=== PATIENT | female | born 1985 | race Caucasian/White ===

== ENCOUNTER → 2020-10-31 | Outpatient (CLI) | payer OTHER | END | disposition home or self-care (01) | LOC: LABWHC1 08:41 | PROVIDERS: ATTEND Obstetrics & Gynecology | DX: N92.6 Irregular menstruation, unspecified (principal) | CPT/HCPCS: 36415; 84702 ==

== ENCOUNTER → 2020-11-01 | Outpatient (CLI) | payer OTHER | END | disposition home or self-care (01) | LOC: LABWHC1 07:26 | PROVIDERS: ATTEND Obstetrics & Gynecology | DX: Z34.01 Encounter for supervision of normal first pregnancy, first trimester (principal); Z3A.00 Weeks of gestation of pregnancy not specified | CPT/HCPCS: 86850; 86900; 86901 ==

== ENCOUNTER → 2020-11-02 | Outpatient (CLI) | payer OTHER | END | disposition home or self-care (01) | LOC: LABWHC1 07:31 | PROVIDERS: ATTEND Obstetrics & Gynecology | DX: O20.0 Threatened abortion (principal); Z3A.00 Weeks of gestation of pregnancy not specified | CPT/HCPCS: 36415; 84702 ==

== ENCOUNTER → 2020-11-13 | Outpatient (CLI) | payer OTHER | END | disposition home or self-care (01) | LOC: LABWHC1 15:52 | PROVIDERS: ATTEND Obstetrics & Gynecology | DX: O20.0 Threatened abortion (principal) | CPT/HCPCS: 36415; 84702 ==

== ENCOUNTER → 2020-11-30 | Outpatient (CLI) | payer OTHER ==
--- NOTE | 2020-11-30 14:54 | US ---
EXAMINATION TYPE: Transabdominal DATE OF EXAM: 11/30/2020 2:38 PM COMPARISON: NONE CLINICAL HISTORY: O46.91 TRIMESTER BLEEDING OR SPOTTING. Bleeding x 1 day, 1 EXAM PERFORMED: Transvaginal (TV) and Transabdominal (TA) EXAM MEASUREMENTS: GESTATIONAL AGE / DATING Physician Established: Not yet established Dates by LMP: (9 weeks/4 days) EDC: 07/01/2021 Dates by First Scan: No previous this is first scan Dates by Current Scan for: No IUP seen at this time MATERNAL ANATOMY Uterus: 8.0 x 4.8 x 5.6cm, heterogeneous endometrium with vascularity Right Ovary: 3.3 x 1.7 x 2.1cm Left Ovary: 3.1 x 1.6 x 1.5cm Post CDS / Adnexa: wnl Presence of free fluid: no Presence of corpus luteal cyst: not seen Presence of subchorionic bleed: no GESTATION / SURVEY IUP: No IUP seen at this time Date of LMP: 09/24/2020 Beta HcG (if available): Not available at time of exam IMPRESSION: Endometrium is heterogeneous with increased vascularity. Measures approximately 1.3 cm appears thicke maci. No intrauterine . . No definite intrauterine seen. Finding nonspecific could be related to early too early to detect. Other etiologies not excluded including missed abo rtion or ectopic , correlate with serial beta hCG and pelvic ultrasound.
== END | disposition home or self-care (01) ==
LOC: RADUSWWP 14:06
PROVIDERS: ATTEND Obstetrics & Gynecology
DX: O20.9 Hemorrhage in early pregnancy, unspecified (principal); Z3A.09 9 weeks gestation of pregnancy
CPT/HCPCS: 76801; 76817

== ENCOUNTER → 2021-01-25 | Outpatient (CLI) | payer OTHER | END | disposition home or self-care (01) | LOC: LABWHC1 07:19 | PROVIDERS: ATTEND Obstetrics & Gynecology | DX: N92.6 Irregular menstruation, unspecified (principal) | CPT/HCPCS: 36415; 84702 ==

== ENCOUNTER → 2021-01-29 | Outpatient (CLI) | payer OTHER | END | disposition home or self-care (01) | LOC: LABWHC1 07:06 | PROVIDERS: ATTEND Obstetrics & Gynecology | DX: N92.6 Irregular menstruation, unspecified (principal) | CPT/HCPCS: 36415; 84702 ==

== ENCOUNTER → 2021-02-02 | Outpatient (CLI) | payer OTHER | END | disposition home or self-care (01) | LOC: LABWHC1 07:01 | PROVIDERS: ATTEND Obstetrics & Gynecology | DX: O02.1 Missed abortion (principal); Z3A.00 Weeks of gestation of pregnancy not specified | CPT/HCPCS: 36415; 84702 ==

== ENCOUNTER → 2021-02-12 | Outpatient (CLI) | payer OTHER ==
--- NOTE | 2021-02-13 08:16 | US ---
EXAMINATION TYPE: Transabdominal DATE OF EXAM: 02/12/2021 4:30 PM COMPARISON: 11/30/2020 CLINICAL HISTORY: Z36 CONFIRM DATES. early ob dating, cramping EXAM PERFORMED: OBTA/OBTV EXAM MEASUREMENTS: GESTATIONAL AGE / DATING Physician Established: Not yet established Dates by LMP: (6 weeks/6 days) EDC: 10/02/2021 Dates by First Scan: No previous this is first scan Dates by Current Scan for: (6 weeks/4 days) EDC: 10/04/2021 MATERNAL ANATOMY Uterus: 11.1 x 7.2 x 5.7cm Right Ovary: 2.7 x 1.1 x 1.8 cm Left Ovary: 3.0 x 2.5 x 1.6cm Post CDS / Adnexa: wnl Presence of free fluid: no Presence of corpus luteal cyst: yes, left ovary = 2.4cm Presence of subchorionic bleed: no GESTATION / SURVEY CRL: 0.7 (6 weeks/4 days) MSD: wnl Yolk Sac (normal less than 6mm): 0.2cm Heart Rate: 131 bpm Rhythm: Normal IUP: Viable IUP Date of LMP: 12/26/2020 Hypoechoic tissue surrounding the gestational sac is prominent with internal areas of hypoechogenicit y. IMPRESSION: Single live intrauterine measuring approximately 6 weeks and 4 days by sonographic criteria . Hypoechoic tissue surrounding the gestational sac is slightly prominent with internal areas of hypoec hogenicity. Correlation with patient's quantitative beta hCG values is recommended with follow-up ultrasound diane mmended in 2 weeks as partial molar or other etiologies could have this appearance, althoug h this may still represent normal intrauterine .
== END | disposition home or self-care (01) ==
LOC: RADUSWWP 15:31
PROVIDERS: ATTEND Obstetrics & Gynecology
DX: O26.899 Other specified pregnancy related conditions, unspecified trimester (principal); R25.2 Cramp and spasm; Z3A.01 Less than 8 weeks gestation of pregnancy
CPT/HCPCS: 76801; 76817

== ENCOUNTER 2021-04-03 22:53 | Emergency (ER) | payer OTHER ==
[2021-04-03 23:17] VITALS: TEMP 100.5
[2021-04-04 00:14] LABS: Appearance,Urine Cloudy (Clear); Bacteria,Urine Few /hpf; Bilirubin,Urine Negative (Negative); Blood,Urine Negative (Negative); Color,Urine Light Yellow; Glucose,Urine (UA) Negative (Negative); Ketones,Urine Negative (Negative); Leukocyte Esterase,Urine Negative (Negative); Nitrite,Urine Negative (Negative); PH, Urine 6.5 (5.0-8.0); Protein,Urine Negative (Negative); RBC,Urine <1 /hpf (0-5); Specific Gravity,Urine 1.004 (1.001-1.035); Squamous Epithelial Cell,Urine 4 /hpf (0-4); Urobilinogen,Urine <2.0 mg/dL (<2.0); WBC,Urine 2 /hpf (0-5)
--- NOTE | 2021-04-04 00:23 | US ---
EXAMINATION TYPE: US OB >= 14 wk fetus DATE OF EXAM: 04/04/2021 COMPARISON: None CLINICAL HISTORY: pain fever TECHNIQUE: Transabdominal (TA) GESTATIONAL AGE / DATING Physician Established: (14 weeks/0 days) EDC: 10/02/2021 Dates by LMP: (14 weeks/0 days) EDC: 10/02/2021 Dates by Current Scan: (14 weeks/5 days) EDC: 09/27/2021 SURVEY IUP: Single PLACENTA: Anterior PREVIA: Complete SALVADOR: Too early to accurately measure, appears wnl CERVICAL LENGTH (transabdominal: norm > 3.0cm): 3.6 cm BIOMETRY PRESENTATION: Variable LIE: Longitudinal BPD: 2.6 cm 14 weeks / 4 days HC: 10.3 cm 14 weeks / 6 days AC: 7.9 cm 14 weeks / 3 days FL: 1.5 cm 14 weeks / 3 days ESTIMATED WEIGHT IN GRAMS: 97 grams ESTIMATED WEIGHT IN LBS/OZ: 0 lbs. 3 oz. WEIGHT PERCENTAGE BASED ON ESTABLISHED DATES: 64% HC/AC: 1.29 Normal FL/AC: 19% Normal HEART RATE: 150 bpm RHYTHM: Normal Viable IUP, measurements consistent with dates. Complete placenta previa is noted . IMPRESSION: There is anterior placenta previa. Follow-up is recommended to show placental migration.. There is satisfactory growth compared to 02/12/2021 exam
--- NOTE | 2021-04-04 00:41 | ED ---
URI HPI - General Chief Complaint: Upper Respiratory Infection Stated Complaint: Fever, 14wks pgt Time Seen by Provider: 04/03/21 23:08 Source: patient, RN notes reviewed Mode of arrival: ambulatory Limitations: no limitations - History of Present Illness Initial Comments: 35-year-old female presents emergency Department chief complaint of fever. Fever started approximately 24 hours ago. Patient has mild congestionand sore throat ear pain no body aches. Patient has no abdominal complaints she is currently denies any vaginal bleeding vaginal discharge no dysuria no hematuria. Patient was seen at urgent care and had a negative ova test. Patient offers no complaints. - Related Data Home Medications Medication Instructions Recorded Confirmed Oqj-Gaic-Eauyk Acid 1 cap PO DAILY 04/03/21 04/03/21 [-U Capsule (formulary)] Previous Rx's Medication Instructions Recorded Azithromycin [Zithromax Z-pack (6 0 mg PO DIRECTED #1 packet 04/04/21 tabs)] Allergies Allergy/AdvReac Type Severity Reaction Status Date / Time No Known Allergies Allergy Verified 04/03/21 23:46 Review of Systems ROS Statement: Those systems with pertinent positive or pertinent negative responses have been documented in the HPI. ROS Other: All systems not noted in ROS Statement are negative. Past Medical History Past Medical History: Musculoskeletal Disorder Additional Past Medical History / Comment(s): BACK PAIN, IBS History of Any Multi-Drug Resistant Organisms: None Reported Past Surgical History: Cholecystectomy Additional Past Surgical History / Comment(s): colonoscopy Past Anesthesia/Blood Transfusion Reactions: No Reported Reaction Past Psychological History: ADD/ADHD, Anxiety Smoking Status: Never smoker Past Alcohol Use History: Occasional Past Drug Use History: None Reported - Past Family History Mother Family Medical History: No Reported History General Exam Limitations: no limitations General appearance: alert, in no apparent distress Head exam: Present: atraumatic, normocephalic, normal inspection Eye exam: Present: normal appearance, PERRL, EOMI. Absent: scleral icterus, conjunctival injection, periorbital swelling ENT exam: Present: normal exam, normal oropharynx, mucous membranes moist Neck exam: Present: normal inspection, full ROM. Absent: tenderness, meningismus, lymphadenopathy Respiratory exam: Present: normal lung sounds bilaterally. Absent: respiratory distress, wheezes, rales, rhonchi, stridor Cardiovascular Exam: Present: regular rate, normal rhythm, normal heart sounds. Absent: systolic murmur, diastolic murmur, rubs, gallop, clicks GI/Abdominal exam: Present: soft, normal bowel sounds. Absent: distended, tenderness, guarding, rebound, rigid Course Vital Signs 04/03/21 04/03/21 23:00 23:16 Temperature 99.5 F 100.5 F H Pulse Rate 94 Respiratory 19 Rate Blood Pressure 114/72 O2 Sat by Pulse 97 Oximetry Medical Decision Making - Medical Decision Making Patient has a negative COVID-19 tests urinalysis unremarkable. Ultrasound shows placenta previa patient will follow-up with [facility]. Return parameters were discussed. - Lab Data Lab Results 04/03/21 04/03/21 Range/Units 23:25 23:25 Urine Color Light Yellow Urine Appearance Cloudy H (Clear) Urine pH 6.5 (5.0-8.0) Ur Specific [place] 1.004 (1.001-1.035) Urine Protein Negative (Negative) Urine Glucose (UA) Negative (Negative) Urine Ketones Negative (Negative) Urine Blood Negative (Negative) Urine Nitrite Negative (Negative) Urine Bilirubin Negative (Negative) Urine Urobilinogen <2.0 (<2.0) mg/dL Ur Leukocyte Esterase Negative (Negative) Urine RBC <1 (0-5) /hpf Urine WBC 2 (0-5) /hpf Ur Squamous Epith Cells 4 (0-4) /hpf Urine Bacteria Few H (None) /hpf Coronavirus (PCR) Not Detected (Not Detectd) Disposition Clinical Impression: Upper respiratory tract infection, Placenta previa Disposition: HOME SELF-CARE Condition: Stable Instructions (If sedation given, give patient instructions): Upper Respiratory Infection (ED) Additional Instructions: Please return to the Emergency Department if symptoms worsen or any other concerns. Prescriptions: Azithromycin [Zithromax Z-pack (6 tabs)] 0 mg PO DIRECTED #1 packet Is patient prescribed a controlled substance at d/c from ED?: No Referrals: Nate Dorantes MD [Primary Care Provider] - 1-2 days Time of Disposition: 00:41
[2021-04-04 00:48] VITALS: BP 122/69; PULSE 81; RESP 20
== END 2021-04-04 00:48 | disposition home or self-care (01) ==
LOC: EC 22:53
DX: O99.512 Diseases of the respiratory system complicating pregnancy, second trimester (principal); O44.02 Complete placenta previa NOS or without hemorrhage, second trimester; O99.342 Other mental disorders complicating pregnancy, second trimester; J06.9 Acute upper respiratory infection, unspecified; F41.9 Anxiety disorder, unspecified; F90.9 Attention-deficit hyperactivity disorder, unspecified type; Z3A.14 14 weeks gestation of pregnancy; Z90.49 Acquired absence of other specified parts of digestive tract; Z20.822 Contact with and (suspected) exposure to COVID-19
CPT/HCPCS: 76805; 81001; 87635; 99284

== ENCOUNTER 2021-09-15 10:40 | Inpatient (IN) | payer OTHER ==
[2021-09-15 11:36] LABS: Creatinine,Urine Random 181.3 mg/dL; Protein/Creatinine Ratio,Urine 0.259
[2021-09-15 11:40] LABS: Basophils % (A) 0 %; Eosinophils % (A) 1 %; HCT 38.4 % (34.0-46.0); HGB 12.9 gm/dL (11.4-16.0); Lymphocytes # (A) 1.6 k/uL (1.0-4.8); Lymphocytes % (A) 29 %; MCH 31.9 pg (25.0-35.0); MCHC 33.6 g/dL (31.0-37.0); MCV 94.7 fL (80.0-100.0); Mean Platelet Volume 8.7; Monocytes # (A) 0.2 k/uL (0-1.0); Monocytes % (A) 4 %; Neutrophils # (A) 3.5 k/uL (1.3-7.7); Neutrophils % (A) 64 %; Platelet Count 128 k/uL (150-450); RBC 4.05 m/uL (3.80-5.40); RDW 14.7 % (11.5-15.5); WBC 5.4 k/uL (3.8-10.6)
[2021-09-15 11:49] LABS: Uric Acid 9.2 mg/dL (3.7-7.4)
[2021-09-15 11:52] LABS: Appearance,Urine Cloudy (Clear); Bacteria,Urine Few /hpf; Bilirubin,Urine Negative (Negative); Blood,Urine Negative (Negative); Color,Urine Yellow; Glucose,Urine (UA) Negative (Negative); Ketones,Urine Negative (Negative); Leukocyte Esterase,Urine Small (Negative); Mucus,Urine Occasional /hpf; Nitrite,Urine Negative (Negative); PH, Urine 6.5 (5.0-8.0); Protein,Urine 1+ (Negative); RBC,Urine 1 /hpf (0-5); Specific Gravity,Urine 1.017 (1.001-1.035); Squamous Epithelial Cell,Urine 72 /hpf (0-4); Urobilinogen,Urine <2.0 mg/dL (<2.0); WBC,Urine 5 /hpf (0-5)
[2021-09-15] MEDS ORDERED: CARBOPROST TROMETHAMINE 250 MCG/ML 1 ML AMP IM PRN (12:02)
[2021-09-15] MEDS ORDERED: LIDOCAINE 1% (PF) 10 MG/ML (30 ML SDV) SQ PRN (12:02)
[2021-09-15] MEDS ORDERED: METHYLERGONOVINE 0.2 MG/ML 1 ML AMP IM PRN (12:02)
[2021-09-15] MEDS ORDERED: OXYTOCIN 10 UNIT/ML 1 ML VIAL IM PRN (12:02)
[2021-09-15] MEDS ORDERED: TERBUTALINE 1 MG/ML VIAL SQ PRN (12:02)
[2021-09-15] MEDS ORDERED: OXYTOCIN 30 UNITS/500 ML NS 30 UNIT in SALINE 1 500ML.BAG IV SCH (12:15)
[2021-09-15] MEDS: LACTATED RINGERS 1,000 ML IV SCH ×2 (12:15→19:47)
[2021-09-15 15:30] LABS: INR 0.8 (<1.2); Partial Thromboplastin Time 23.7 sec (22.0-30.0); Prothrombin Time 9.3 sec (9.0-12.0)
--- NOTE | 2021-09-15 15:38 | P.HPOB ---
History of Present Illness H&P Date: 09/15/21 Chief Complaint: high BP 36 year old presents at 37 weeks 3 days with intermittent headache, nausea and spots in her vision. Her BP at home was 141/95. I advised her to come to triage where she had more elevated BPs. She also has a high uric acid and creatinine though her PC ratio is still within normal. I am diagnosing her with pre-eclampsia. The patient, her and I had a long discussion about what pre-eclampsia is and the method of delivery. Shared decision making was used and she will undergo induction of labor with amniotomy and pitocin. Pt is 1-2/60/- 2. She is lars irregularly and heart tones are 135 with moderate variability and reactive. Review of Systems All systems: negative Constitutional: Denies chills, Denies fever Eyes: denies blurred vision, denies pain Ears, nose, mouth and throat: Reports headache, Denies sore throat Cardiovascular: Denies chest pain, Denies shortness of breath Respiratory: Denies cough Gastrointestinal: Denies abdominal pain, Denies diarrhea, Denies nausea, Denies vomiting Genitourinary: Denies dysuria, Denies hematuria Musculoskeletal: Denies myalgias Integumentary: Denies pruritus, Denies rash Neurological: Denies numbness, Denies weakness Psychiatric: Denies anxiety, Denies depression Endocrine: Denies fatigue, Denies weight change Past Medical History Past Medical History: Musculoskeletal Disorder Additional Past Medical History / Comment(s): BACK PAIN, IBS History of Any Multi-Drug Resistant Organisms: None Reported Past Surgical History: Cholecystectomy Additional Past Surgical History / Comment(s): colonoscopy, back sugery Past Anesthesia/Blood Transfusion Reactions: No Reported Reaction Past Psychological History: ADD/ADHD, Anxiety Smoking Status: Former smoker Past Alcohol Use History: Occasional Additional Past Alcohol Use History / Comment(s): SMOKED OFF AND ON FROM AGE 17 (2001) UNTIL 2015, LESS THAN 1PPD Past Drug Use History: None Reported - Past Family History Mother Family Medical History: No Reported History Medications and Allergies Home Medications Medication Instructions Recorded Confirmed Type Kor-Bger-Faqek Acid 1 cap PO DAILY 04/03/21 09/15/21 History [-U Capsule (formulary)] Allergies Allergy/AdvReac Type Severity Reaction Status Date / Time No Known Allergies Allergy Verified 09/15/21 11:00 Exam Osteopathic Statement: *. No significant issues noted on an osteopathic structural exam other than those noted in the History and Physical/Consult. Vital Signs Temp Pulse Resp BP Pulse Ox 09/15/21 12:08 97.0 F L 69 18 134/86 09/15/21 12:00 97.0 F L 69 17 134/86 100 Intake and Output 09/15/21 09/15/21 09/15/21 06:59 14:59 22:59 Other: # Voids 3 Weight 72.121 kg HEart: RRR Lungs: CTAB Abdomen: soft, nontender Extremeties: neg asif's Results Result Diagrams: 09/15/21 11:25 09/15/21 11:25 Abnormal Lab Results - Last 24 Hours (Table) 09/15/21 09/15/21 09/15/21 Range/Units 11:00 11:25 11:25 Plt Count 128 L (150-450) k/uL Uric Acid 9.2 H (3.7-7.4) mg/dL Urine Appearance Cloudy H (Clear) Urine Protein 1+ H (Negative) Ur Leukocyte Esterase Small H (Negative) Ur Squamous Epith Cells 72 H (0-4) /hpf Urine Bacteria Few H (None) /hpf Urine Mucus Occasional H (None) /hpf Assessment and Plan (1) Pre-eclampsia Current Visit: Yes Status: Acute Code(s): O14.90 - UNSPECIFIED PRE- ECLAMPSIA, UNSPECIFIED TRIMESTER SNOMED Code(s): 240342709 Plan: 1. monitor BP 2. induction of labor with amniotomy and pitocin 3. anticipate normal vaginal delivery
[2021-09-15] MEDS: BUTORPHANOL 1 MG/ML 1 ML VIAL IV PRN ×2 (17:49→19:49)
[2021-09-16] MEDS ORDERED: AMPICILLIN 2,000 MG in SODIUM CHLORIDE 0.9% 100 ML IVPB STA (01:04)
[2021-09-16] MEDS: LACTATED RINGERS 1,000 ML IV SCH ×2 (02:03→04:42)
[2021-09-16] MEDS ORDERED: AMPICILLIN 1,000 MG in SODIUM CHLORIDE 0.9% 50 ML IVPB SCH (05:15)
[2021-09-16] MEDS ORDERED: diphenhydrAMINE 50 MG CAP PO PRN (06:39)
[2021-09-16] MEDS ORDERED: diphenhydrAMINE 25 MG CAP PO PRN (06:39)
[2021-09-16] MEDS ORDERED: ZOLPIDEM 5 MG TAB PO PRN (06:39)
[2021-09-16] MEDS ORDERED: HYDROCORTISONE 2.5% RECTAL CREAM 30 GM TUBE RECTAL PRN (06:39)
[2021-09-16] MEDS ORDERED: diphenhydrAMINE 50 MG/ML 1 ML VIAL IVP PRN ×2 (06:39)
[2021-09-16] MEDS ORDERED: LANOLIN CREAM 5 GM TUBE TOPICAL PRN (06:39)
[2021-09-16] MEDS ORDERED: SIMETHICONE 80 MG CHEWABLE PO PRN (06:39)
--- NOTE | 2021-09-16 06:43 | P.PROBDLV ---
Vaginal Delivery Note - . Vaginal Delivery Note: 36 year old presents at 37 weeks 3 days with intermittent headache, nausea and spots in her vision. Her BP at home was 141/95. I advised her to come to triage where she had more elevated BPs. She also has a high uric acid and creatinine though her PC ratio is still within normal. I am diagnosing her with pre-eclampsia. The patient, her and I had a long discussion about what pre-eclampsia is and the method of delivery. Shared decision making was used and she will undergo induction of labor with amniotomy and pitocin. Pt is 1-2/60/-2. She is lars irregularly and heart tones are 135 with moderate variability and reactive. Pitocin was started around 12:30 in the afternoon. Patient was starting to get uncomfortable with contractions and amniotomy was performed at 1407 clear fluid noted. She did get a few doses of Stadol and then an epidural when she was 4 cm. Her cervix was completely dilated at 0552, she pushed and delivered a viable female over intact perineum under epidural anesthesia at 0616. Head delivered OA, anterior shoulder delivered gentle downward guidance followed by posterior shoulder and rest of body. Nose and mouth bulb suctioned, cord clamped and cut, placed mother's abdomen. Apgars 8, 9, weight pending. Placenta delivered spontaneously, intact with three-vessel cord at 6:21 AM. Vagina, cervix, perineum inspected. First-degree midline laceration was repaired with 3-0 Vicryl. Estimated blood loss 150 mL. Mother and baby in stable condition.
[2021-09-16] MEDS ORDERED: OXYTOCIN 30 UNITS/500 ML NS 30 UNIT in SALINE 1 500ML.BAG IV SCH (06:45)
[2021-09-16] MEDS: BENZOCAINE/MENTHOL SPRAY 1 GM/SPRAY AEROSOL TOPICAL PRN ×2 (07:00→07:49)
[2021-09-16] MEDS: SENNOSIDES-DOCUSATE SODIUM 1 EACH TAB PO SCH (07:48)
[2021-09-16] MEDS: IBUPROFEN 600 MG TAB PO PRN ×3 (07:48→20:45)
[2021-09-16] MEDS: ACETAMINOPHEN TAB 325 MG TAB PO PRN ×2 (10:36→17:52)
[2021-09-16] MEDS ORDERED: ROPIVACAINE 100 MG, fentaNYL (PF). 200 MCG in SODIUM CHLORIDE 0.9% 76 ML EPIDURAL ONE (16:17)
[2021-09-17] MEDS: SENNOSIDES-DOCUSATE SODIUM 1 EACH TAB PO SCH ×3 (02:04→21:19)
[2021-09-17] MEDS: ACETAMINOPHEN TAB 325 MG TAB PO PRN ×2 (06:19→15:56)
--- NOTE | 2021-09-17 06:20 | P.PNOBGVD ---
Subjective - Subjective Patient reports: Reports appetite normal, Reports voiding normally, Reports pain well controlled, Reports ambulating normally : doing well Objective - Latest Vital Signs Latest vital signs: Vital Signs Temp Pulse Resp BP 09/17/21 00:23 98.6 F 61 16 131/80 09/16/21 20:45 98.6 F 66 16 135/86 09/16/21 15:26 97.4 F L 73 17 136/89 09/16/21 12:00 97.9 F 63 18 150/91 09/16/21 10:15 97.1 F L 61 18 154/83 09/16/21 08:30 98.8 F 72 18 135/68 09/16/21 08:00 71 18 162/79 09/16/21 07:30 98.4 F 17 150/82 09/16/21 07:15 76 18 137/71 09/16/21 07:00 74 16 139/96 09/16/21 06:45 74 16 143/66 09/16/21 06:30 98.5 F 81 16 147/85 Intake and Output 09/16/21 09/16/21 09/17/21 14:59 22:59 06:59 Intake Total 1000 1200 Balance 1000 1200 Intake: IV 1000 Oral 1200 Other: # Voids 1 3 2 - Exam Lungs: bilateral: normal Chest: Normal S1, Normal S2 Extremities: Present: normal Abdomen: Present: normal appearance, soft Uterus: Present: normal, firm Assessment and Plan Assessment: day #1. Patient is resting without new complaints and wishes to go home. Blood pressure is elevated this morning 152/95.. Blood work however did show her platelets yesterday were 128, with normal liver function tests. Therefore I suspect this is just related and not HELLP syndrome however going to repeat her CBC this morning. Plan today is to recheck CBC and liver function tests. Continue routine care otherwise. Watch her blood pressures carefully (1) Vaginal delivery Current Visit: Yes Status: Acute Code(s): O80 - ENCOUNTER FOR FULL-TERM UNCOMPLICATED DELIVERY SNOMED Code(s): 648691904
[2021-09-17 08:06] LABS: Basophils % (A) 0 %; Eosinophils # (A) 0.1 k/uL (0-0.7); Eosinophils % (A) 1 %; HCT 29.6 % (34.0-46.0); Lymphocytes # (A) 1.4 k/uL (1.0-4.8); Lymphocytes % (A) 19 %; MCH 32.1 pg (25.0-35.0); MCHC 33.4 g/dL (31.0-37.0); MCV 96.1 fL (80.0-100.0); Mean Platelet Volume 8.5; Monocytes # (A) 0.3 k/uL (0-1.0); Monocytes % (A) 4 %; Neutrophils # (A) 5.5 k/uL (1.3-7.7); Neutrophils % (A) 75 %; Platelet Count 108 k/uL (150-450); RBC 3.08 m/uL (3.80-5.40); RDW 14.3 % (11.5-15.5); WBC 7.4 k/uL (3.8-10.6)
[2021-09-17 08:15] LABS: HGB 9.9 gm/dL (11.4-16.0)
[2021-09-17 08:29] LABS: Albumin 2.3 g/dL (3.5-5.0); Bilirubin, Delta 0.1 mg/dL (0.0-0.2); Bilirubin,Unconjugated 0.2 mg/dL (0.0-1.1); Total Bilirubin 0.3 mg/dL (0.2-1.3); Total Protein 4.8 g/dL (6.3-8.2)
[2021-09-17] MEDS: IBUPROFEN 600 MG TAB PO PRN (10:13)
--- NOTE | 2021-09-18 06:40 | P.PNOBGVD ---
Subjective - Subjective Patient reports: Reports appetite normal, Reports voiding normally, Reports pain well controlled, Reports ambulating normally : doing well Objective - Latest Vital Signs Latest vital signs: Vital Signs Temp Pulse Resp BP 09/17/21 16:00 98.2 F 62 16 140/87 09/17/21 08:00 98.2 F 68 16 135/78 Intake and Output 09/17/21 09/17/21 09/18/21 14:59 22:59 06:59 Intake Total 500 500 2 Balance 500 500 2 Intake: IV 2 Oral 500 500 Other: # Voids 1 2 - Labs Labs: Abnormal Lab Results - Last 24 Hours (Table) 09/17/21 09/17/21 Range/Units 07:26 07:26 RBC 3.08 L (3.80-5.40) m/uL Hgb 9.9 L D (11.4-16.0) gm/dL Hct 29.6 L (34.0-46.0) % Plt Count 108 L (150-450) k/uL Total Protein 4.8 L (6.3-8.2) g/dL Albumin 2.3 L (3.5-5.0) g/dL Assessment and Plan Assessment: day #2. Patient is resting without new complaints. Blood pressures remain at a level that did not require treatment. She has had a headache on and off but this is mild for the most part controlled with Motrin and Tylenol. CBC showed yesterday that her platelets were 108 down from 128 on admission however repeat liver tests were normal. CBC today is pending. Plan today is to check a CBC, continue routine postoperative care. I believe patient is stable for discharge home follow up with me in 1 week for a blood pressure check and I'll repeat her platelets at that time as well. (1) Vaginal delivery Current Visit: Yes Status: Acute Code(s): O80 - ENCOUNTER FOR FULL-TERM UNCOMPLICATED DELIVERY SNOMED Code(s): 926850489
--- NOTE | 2021-09-18 06:44 | P.DS ---
Providers Date of admission: 09/15/21 12:02 Expected date of discharge: 09/18/21 Attending physician: Aren Timmons Primary care physician: Stated None - Discharge Diagnosis(es) (1) Vaginal delivery Current Visit: Yes Status: Acute Hospital Course: Please see dictated H&P per Dr. Krishna on this patient's admission. In brief summary this is a pleasant 36-year-old female 37 weeks gestation admitted with a diagnosis of preeclampsia. Patient subsequently underwent induction of labor for viable female infant. Of note CBC on admission showed a platelet count of 128 and repeat approximately day after delivery was 108. Patient had normal liver function tests and no evidence of HELLP. Patient did not require any oral antihypertensives for her blood pressure. On 2 patient's felt be stable for discharge home follow up with me in 1 week for a blood pressure check and repeat platelets Procedures: Induction of labor and normal vaginal delivery Patient Condition at Discharge: Good Plan - Discharge Summary New Discharge Prescriptions: New Ibuprofen [Motrin] 600 mg PO Q6HR PRN #30 tab PRN Reason: Pain No Action Ksa-Kaxx-Uufpm Acid [-U Capsule (formulary)] 1 cap PO DAILY Discharge Medication List Kyd-Uvwm-Fiukf Acid [-U Capsule (formulary)] 1 cap PO DAILY 04/03/21 [History] Ibuprofen [Motrin] 600 mg PO Q6HR PRN #30 tab 09/18/21 [Rx] Follow up Appointment(s)/Referral(s): Aren Timmons MD [STAFF PHYSICIAN] - 10/29/21 10:45 am (Please see me in 1 week for blood pressure check and repeat platelets) Patient Instructions/Handouts: Vaginal Delivery (DC) Activity/Diet/Wound Care/Special Instructions: No intercourse or anything per vagina for 6 weeks. These call if any fever, chills, excessive vaginal bleeding, and/or abdominal pain Discharge Disposition: HOME SELF-CARE
[2021-09-18 07:24] LABS: Basophils % (A) 0 %; Eosinophils # (A) 0.1 k/uL (0-0.7); Eosinophils % (A) 1 %; HCT 32.7 % (34.0-46.0); HGB 10.6 gm/dL (11.4-16.0); Hypochromasia Slight; Lymphocytes # (A) 1.5 k/uL (1.0-4.8); Lymphocytes % (A) 21 %; MCHC 32.5 g/dL (31.0-37.0); MCV 98.4 fL (80.0-100.0); Macrocytosis Slight; Mean Platelet Volume 8.7; Monocytes # (A) 0.3 k/uL (0-1.0); Monocytes % (A) 4 %; Neutrophils # (A) 5.4 k/uL (1.3-7.7); Neutrophils % (A) 73 %; Platelet Count 106 k/uL (150-450); RBC 3.32 m/uL (3.80-5.40); RDW 15.1 % (11.5-15.5); WBC 7.4 k/uL (3.8-10.6)
[2021-09-18] MEDS ORDERED: CALCIUM GLUCONATE 1 GM/10 ML VIAL IV PRN (07:58)
[2021-09-18] MEDS ORDERED: MAGNESIUM SULFATE-WATER PMX 4 GM in WATER FOR INJECTION 1 100ML.BAG IVPB ONE (07:58)
[2021-09-18] MEDS: SENNOSIDES-DOCUSATE SODIUM 1 EACH TAB PO SCH (08:04)
--- NOTE | 2021-09-18 08:09 | P.PN ---
Progress Note - Text Progress Note Date: 09/18/21 I was called re: blood pressure this morning 163/91 and 177/96. Again no new symptoms but will administer Magnesium sulfate and also start oral Labetalol.
[2021-09-18] MEDS: MAGNESIUM SULFATE-WATER PMX 20 GM in WATER FOR INJECTION 1 500ML.BAG IV SCH ×2 (08:51→18:07)
[2021-09-18] MEDS: LACTATED RINGERS 1,000 ML IV SCH (08:51)
[2021-09-18] MEDS ORDERED: LABETALOL 100 MG TAB PO SCH (09:00)
[2021-09-18] MEDS ORDERED: LABETALOL 100 MG TAB PO STA (14:13)
[2021-09-18] MEDS: IBUPROFEN 600 MG TAB PO PRN (18:06)
[2021-09-18] MEDS: LABETALOL 200 MG TAB PO SCH (20:58)
[2021-09-19] MEDS: MAGNESIUM SULFATE-WATER PMX 20 GM in WATER FOR INJECTION 1 500ML.BAG IV SCH (03:28)
[2021-09-19] MEDS: SENNOSIDES-DOCUSATE SODIUM 1 EACH TAB PO SCH ×3 (03:55→20:30)
[2021-09-19] MEDS: LACTATED RINGERS 1,000 ML IV SCH (06:14)
--- NOTE | 2021-09-19 06:25 | P.PNOBGVD ---
Subjective - Subjective Patient reports: Reports appetite normal, Reports voiding normally, Reports pain well controlled, Reports ambulating normally : doing well Objective - Latest Vital Signs Latest vital signs: Vital Signs Temp Pulse Resp BP BP Pulse Ox 09/19/21 05:00 56 L 16 125/86 100 09/18/21 20:00 98.0 F 63 16 139/86 09/18/21 18:00 97.6 F 65 18 147/84 99 09/18/21 16:46 62 18 134/76 09/18/21 16:00 97.7 F 71 18 152/86 98 09/18/21 14:00 97.6 F 74 18 169/93 100 09/18/21 12:00 97.3 F L 57 L 18 155/88 97 09/18/21 11:00 97.1 F L 62 18 144/88 98 09/18/21 09:45 96.8 F L 68 20 140/89 09/18/21 09:38 60 18 144/90 09/18/21 09:30 97.2 F L 65 20 147/90 98 09/18/21 09:15 97.3 F L 64 18 149/87 99 09/18/21 09:08 97.1 F L 72 18 159/91 99 09/18/21 09:00 97.4 F L 72 20 156/91 99 09/18/21 08:48 97.4 F L 70 18 150/88 98 09/18/21 08:41 97.4 F L 60 18 167/95 99 09/18/21 08:00 98.8 F 55 L 18 177/96 185/103 09/18/21 07:29 99.2 F 59 L 16 163/91 99 Intake and Output 09/18/21 09/18/21 09/19/21 14:59 22:59 06:59 Intake Total 463.333 467.5 Output Total 1650 2400 1000 Balance -1650 -1936.667 -532.5 Intake: Intake, IV Titration 463.333 467.5 Amount Magnesium Sulfate-Water 463.333 467.5 Pmx 20 gm In Water For Injection 1 500ml.bag @ 2 GM/HR 50 mls/hr IV .Q10H [facility] Rx#:[id number] Output: Urine 1650 2400 1000 Other: # Voids 1 1 - Labs Labs: Abnormal Lab Results - Last 24 Hours (Table) 09/18/21 Range/Units 06:49 RBC 3.32 L (3.80-5.40) m/uL Hgb 10.6 L (11.4-16.0) gm/dL Hct 32.7 L (34.0-46.0) % Plt Count 106 L (150-450) k/uL Assessment and Plan Assessment: day #3. Patient is resting without new complaints. Patient d eveloped hypertension yesterday morning after I saw her and was subsequently placed on magnesium sulfate and oral labetalol. I did have to increase her dose to 200 mg by mouth twice a day. Patient is feeling fine this morning however groggy from her magnesium sulfate. Plan today is to recheck her labs, discontinue the magnesium sulfate, continue oral labetalol and monitor closely. If she remains stable and blood pressures remain good then most likely discharge home tomorrow. (1) Vaginal delivery Current Visit: Yes Status: Acute Code(s): O80 - ENCOUNTER FOR FULL-TERM UNCOMPLICATED DELIVERY SNOMED Code(s): 812391456
[2021-09-19 06:34] LABS: Basophils % (A) 0 %; Eosinophils # (A) 0.1 k/uL (0-0.7); Eosinophils % (A) 2 %; HCT 32.2 % (34.0-46.0); HGB 10.4 gm/dL (11.4-16.0); Lymphocytes # (A) 1.9 k/uL (1.0-4.8); Lymphocytes % (A) 31 %; MCH 31.3 pg (25.0-35.0); MCHC 32.2 g/dL (31.0-37.0); MCV 97.3 fL (80.0-100.0); Mean Platelet Volume 7.7; Monocytes # (A) 0.2 k/uL (0-1.0); Monocytes % (A) 4 %; Neutrophils # (A) 3.6 k/uL (1.3-7.7); Neutrophils % (A) 60 %; Platelet Count 136 k/uL (150-450); RBC 3.31 m/uL (3.80-5.40); RDW 15.1 % (11.5-15.5)
[2021-09-19 06:35] LABS: ALT 19 U/L (4-34); AST 61 U/L (14-36); African American GFR (CKD) >90 (>60 ml/min/1.73 sqM); Blood Urea Nitrogen 7 mg/dL (7-17); Non-African American GFR(CKD) 81 (>60 ml/min/1.73 sqM)
[2021-09-19 07:04] LABS: Magnesium 8.4 mg/dL (1.6-2.3)
[2021-09-19] MEDS: IBUPROFEN 600 MG TAB PO PRN ×2 (07:41→15:22)
[2021-09-19] MEDS: LABETALOL 200 MG TAB PO SCH ×3 (08:36→21:21)
[2021-09-20] MEDS: LABETALOL 200 MG TAB PO SCH ×3 (04:20→22:16)
[2021-09-20 05:48] LABS: Basophils % (A) 0 %; Eosinophils # (A) 0.1 k/uL (0-0.7); Eosinophils % (A) 1 %; HGB 11.1 gm/dL (11.4-16.0); Hypochromasia Slight; Lymphocytes # (A) 1.4 k/uL (1.0-4.8); Lymphocytes % (A) 18 %; MCHC 32.6 g/dL (31.0-37.0); MCV 98.1 fL (80.0-100.0); Mean Platelet Volume 7.7; Monocytes # (A) 0.3 k/uL (0-1.0); Monocytes % (A) 3 %; Neutrophils % (A) 76 %; Platelet Count 150 k/uL (150-450); RBC 3.47 m/uL (3.80-5.40); RDW 14.1 % (11.5-15.5); WBC 7.8 k/uL (3.8-10.6)
[2021-09-20 05:59] LABS: ALT 38 U/L (4-34); AST 102 U/L (14-36); Alkaline Phosphatase 124 U/L (38-126); Bilirubin, Delta 0.1 mg/dL (0.0-0.2); Bilirubin,Unconjugated 0.3 mg/dL (0.0-1.1); Total Bilirubin 0.4 mg/dL (0.2-1.3); Total Protein 6.1 g/dL (6.3-8.2)
--- NOTE | 2021-09-20 06:15 | P.PNOBGVD ---
Subjective - Subjective Patient reports: Reports appetite normal, Reports voiding normally, Reports pain well controlled, Reports ambulating normally : doing well Objective - Latest Vital Signs Latest vital signs: Vital Signs Temp Pulse Resp BP BP Pulse Ox 09/20/21 06:00 157/87 09/20/21 04:10 98.7 F 55 L 16 186/101 99 09/20/21 01:00 98.7 F 56 L 16 156/88 100 09/19/21 22:18 147/85 09/19/21 21:00 98.2 F 69 17 170/92 99 09/19/21 17:20 66 143/78 09/19/21 16:00 16 09/19/21 15:29 82 150/88 09/19/21 15:28 97.8 F 63 16 152/88 09/19/21 12:00 97.6 F 59 L 16 144/89 09/19/21 10:35 135/87 09/19/21 08:01 97.7 F 58 L 18 154/100 98 09/19/21 07:58 16 Intake and Output 09/19/21 09/19/21 09/20/21 14:59 22:59 06:59 Intake Total 800 Balance 800 Intake: Oral 800 Other: # Voids 1 2 2 - Exam Lungs: bilateral: normal Chest: Normal S1, Normal S2 Extremities: Present: normal Abdomen: Present: normal appearance, soft Uterus: Present: normal, firm - Labs Labs: Abnormal Lab Results - Last 24 Hours (Table) 09/19/21 09/19/21 09/20/21 Range/Units 05:38 05:38 05:25 RBC 3.31 L 3.47 L (3.80-5.40) m/uL Hgb 10.4 L 11.1 L (11.4-16.0) gm/dL Hct 32.2 L (34.0-46.0) % Plt Count 136 L (150-450) k/uL Magnesium 8.4 H* (1.6-2.3) mg/dL AST 61 H (14-36) U/L ALT (4-34) U/L Total Protein (6.3-8.2) g/dL Albumin (3.5-5.0) g/dL 09/20/21 Range/Units 05:25 RBC (3.80-5.40) m/uL Hgb (11.4-16.0) gm/dL Hct (34.0-46.0) % Plt Count (150-450) k/uL Magnesium (1.6-2.3) mg/dL AST 102 H (14-36) U/L ALT 38 H (4-34) U/L Total Protein 6.1 L (6.3-8.2) g/dL Albumin 3.0 L (3.5-5.0) g/dL Assessment and Plan Assessment: Patient is resting today and states that she feels much better however she did have a significant blood pressure elevation. Patient was given her dose of labetalol earlier in the does bring it down, however repeat blood work shows her platelets are back to normal but her AST and ALT have elevated more. Plan today is to add Procardia to her hypertension regimen and I'm also going to consult cardiology to assist with management. It appears that she has a significant for preeclampsia however she is not ready to go home until we can get her blood pressures under control and ensure that her liver function tests are stabilizing or reversing. (1) Vaginal delivery Current Visit: Yes Status: Acute Code(s): O80 - ENCOUNTER FOR FULL-TERM UNCOMPLICATED DELIVERY SNOMED Code(s): 466011072
[2021-09-20 06:35] LABS: African American GFR (CKD) >90 (>60 ml/min/1.73 sqM); Anion Gap 5 mmol/L; Blood Urea Nitrogen 8 mg/dL (7-17); Calcium 8.1 mg/dL (8.4-10.2); Carbon Dioxide 23 mmol/L (22-30); Chloride 109 mmol/L (98-107); Glucose 75 mg/dL (74-99); Non-African American GFR(CKD) 83 (>60 ml/min/1.73 sqM); Sodium 137 mmol/L (137-145)
[2021-09-20] MEDS ORDERED: NIFEdipine XL 30 MG TAB.ER.24 PO SCH (09:00)
--- NOTE | 2021-09-20 09:20 | P.CRDCN ---
History of Present Illness Consult date: 09/20/21 History of present illness: HISTORY OF PRESENT ILLNESS: This is a 36-year-old female with no significant past medical history. Patient does not follow with a certified ophthalmic technologist. We have been asked to see the patient in consultation for hypertension. Patient examined at the bedside. Patient is s/p vaginal delivery on 09/16/2021. Patient denies any previous history of hypertension. She states around 35 weeks gestation she noticed her blood pressure was started to become elevated with a systolic in the 130s. At 37 weeks, her blood pressure continued to rise with a systolic in the 140s along with headaches and spotty vision. She was brought to the hospital for induction of labor. Patient continued to have high blood post delivery. She was started on Labetalol 200 mg 3 times a day. She was also started on Procardia 30 mg daily this morning. Blood pressure this morning 157/87. The patient states she is feeling well this morning. She denies any chest pain or pressure. She denies any shortness of breath. Denies any dizziness or lightheadedness. Currently denying any vision changes. * EKG not available at the time of this dictation * Laboratory data: WBC 7.8. Hemoglobin 11.1. Platelet count 150. Sodium 137. Potassium 4.0. BUN 8. Creatinine 0.90. Magnesium 8.4. ALT 38. AST 102. * Current home cardiac medications include none. REVIEW OF SYSTEMS: At the time of my exam: CONSTITUTIONAL: Denies fever or chills. HEENT: Denies blurred vision, vision changes, or eye pain. Denies hemoptysis CARDIOVASCULAR: Denies chest pain. Denies orthopnea. Denies PND. Denies palpitations RESPIRATORY: Denies shortness of breath. GASTROINTESTINAL: Denies abdominal pain. Denies nausea or vomiting. HEMATOLOGIC: Denies bleeding disorders. GENITOURINARY: Denies any blood in urine. SKIN: Denies pruitis. Denies rash. PHYSICAL EXAM: VITAL SIGNS: Reviewed. GENERAL: Well-developed in no acute distress. HEENT: Head is normocephalic. Pupils are equal, round. Sclerae anicteric. Mucous membranes of the mouth are moist. Neck supple. No JVD or thyromegaly LUNGS: Respirations even and unlabored. Lungs essentially clear to auscultation bilaterally. HEART: Regular rate and rhythm. S1 and S2 heard. Systolic murmur noted. ABDOMEN: Soft. Nondistended. Nontender. EXTREMITIES: Normal range of motion. No clubbing or cyanosis. Peripheral pulses intact. Trace lower extremity ankle edema NEUROLOGIC: Awake and alert. Oriented x 3. ASSESSMENT: Preeclampsia, s/p induction of labor at 37 weeks with vaginal delivery on 09/16/2021 Mildly elevated LFTs Thrombocytopenia Systolic murmur, may be secondary to PLAN: Continue labetalol Procardia added to patient's medication regimen this morning. Continue to monitor blood pressure. If blood pressure remains elevated, will increase dose of Procardia Obtain EKG Obtain 2-D echo to assess cardiac structure and function Further recommendations pending patient's course Nurse practitioner note has been reviewed by physician. Signing provider agrees with the documented findings, assessment, and plan of care. Past Medical History Past Medical History: Musculoskeletal Disorder Additional Past Medical History / Comment(s): BACK PAIN, IBS History of Any Multi-Drug Resistant Organisms: None Reported Past Surgical History: Cholecystectomy Additional Past Surgical History / Comment(s): colonoscopy, back sugery Past Anesthesia/Blood Transfusion Reactions: No Reported Reaction Past Psychological History: ADD/ADHD, Anxiety Smoking Status: Former smoker Past Alcohol Use History: Occasional Additional Past Alcohol Use History / Comment(s): SMOKED OFF AND ON FROM AGE 17 (2001) UNTIL 2015, LESS THAN 1PPD Past Drug Use History: None Reported - Past Family History Mother Family Medical History: No Reported History Medications and Allergies Home Medications Medication Instructions Recorded Confirmed Type Jmy-Pzqd-Wgdjs Acid 1 cap PO DAILY 04/03/21 09/15/21 History [-U Capsule (formulary)] Ibuprofen [Motrin] 600 mg PO Q6HR PRN #30 tab 09/18/21 Rx Allergies Allergy/AdvReac Type Severity Reaction Status Date / Time No Known Allergies Allergy Verified 09/15/21 11:00 Physical Exam Vitals: Vital Signs Temp Pulse Resp BP Pulse Ox 09/20/21 06:00 157/87 09/20/21 04:10 98.7 F 55 L 16 186/101 99 09/20/21 01:00 98.7 F 56 L 16 156/88 100 09/19/21 22:18 147/85 09/19/21 21:00 98.2 F 69 17 170/92 99 09/19/21 17:20 66 143/78 09/19/21 16:00 16 09/19/21 15:29 82 150/88 09/19/21 15:28 97.8 F 63 16 152/88 09/19/21 12:00 97.6 F 59 L 16 144/89 09/19/21 10:35 135/87 Intake and Output 09/19/21 09/20/21 09/20/21 22:59 06:59 14:59 Other: # Voids 2 2 Results 09/20/21 05:25 09/20/21 05:25 Cardiac Enzymes 09/20/21 Range/Units 05:25 AST 102 H (14-36) U/L CBC 09/20/21 Range/Units 05:25 WBC 7.8 (3.8-10.6) k/uL RBC 3.47 L (3.80-5.40) m/uL Hgb 11.1 L (11.4-16.0) gm/dL Hct 34.0 (34.0-46.0) % Plt Count 150 (150-450) k/uL Comprehensive Metabolic Panel 09/20/21 Range/Units 05:25 Sodium 137 (137-145) mmol/L Potassium 4.0 (3.5-5.1) mmol/L Chloride 109 H (98-107) mmol/L Carbon Dioxide 23 (22-30) mmol/L BUN 8 (7-17) mg/dL Creatinine 0.90 (0.52-1.04) mg/dL Glucose 75 (74-99) mg/dL Calcium 8.1 L (8.4-10.2) mg/dL Unconjugated Bilirubin 0.3 (0.0-1.1) mg/dL AST 102 H (14-36) U/L ALT 38 H (4-34) U/L Alkaline Phosphatase 124 (38-126) U/L Total Protein 6.1 L (6.3-8.2) g/dL Albumin 3.0 L (3.5-5.0) g/dL Current Medications Generic Name Dose Route Start Last Admin Trade Name Freq PRN Reason Stop Dose Admin Acetaminophen 650 mg 09/16/21 06:39 09/17/21 15:56 Acetaminophen Tab 325 Mg Tab PO 650 mg Q4HR PRN Administration Mild Pain or Fever >= 100.5 Benzocaine/Menthol 1 gm 09/16/21 06:39 09/16/21 07:49 Benzocaine/Menthol [place] 1 Gm/[place] Aerosol TOPICAL 1 gm TID PRN Administration Perineal Discomfort Calcium Gluconate 1 gm 09/18/21 07:58 Calcium Gluconate 1 Gm/10 Ml Vial IV 09/28/21 07:59 ONCE PRN Respiratory or Cardiac Arrest Diphenhydramine HCl 25 mg 09/16/21 06:39 Diphenhydramine 25 Mg Cap PO Q6HR PRN Mild Itching Diphenhydramine HCl 50 mg 09/16/21 06:39 Diphenhydramine 50 Mg Cap PO Q6HR PRN Moderate to Severe Itching Diphenhydramine HCl 25 mg 09/16/21 06:39 Diphenhydramine 50 Mg/Ml 1 Ml Vial IVP Q6HR PRN Mild Itching Diphenhydramine HCl 50 mg 09/16/21 06:39 Diphenhydramine 50 Mg/Ml 1 Ml Vial IVP Q6HR PRN Moderate to Severe Itching Emollient Ointment 1 applic 09/16/21 06:39 Lanolin Cream 5 Gm Tube TOPICAL Q1HR PRN Breast Feeding Hydrocortisone 1 applic 09/16/21 06:39 Hydrocortisone 2.5% Rectal Cream 30 Gm Tube RECTAL BID PRN Hemorrhoids Ibuprofen 600 mg 09/16/21 06:39 09/19/21 15:22 Ibuprofen 600 Mg Tab PO 600 mg Q6HR PRN Administration Mild Pain (Scale 1 To 3) Labetalol HCl 200 mg 09/19/21 16:00 09/20/21 04:20 Labetalol 200 Mg Tab PO 200 mg TID [facility] Administration Nifedipine 30 mg 09/20/21 09:00 09/20/21 08:34 Nifedipine Xl 30 Mg Tab.Er.24 PO 30 mg DAILY [facility] Administration Senna/Docusate Sodium 2 each 09/16/21 08:00 09/19/21 20:30 Sennosides-Docusate Sodium 1 Each Tab PO Not Given BID@0800,1999 [facility] Simethicone 80 mg 09/16/21 06:39 Simethicone 80 Mg Chewable PO PCHS PRN Indigestion Witch Shivani 1 each 09/16/21 06:39 09/16/21 07:00 Witch Shivani 1 Each Med..Pad TOPICAL 1 each DAILY PRN Administration Perineal Discomfort Zolpidem Tartrate 5 mg 09/16/21 06:39 Zolpidem 5 Mg Tab PO HS PRN Insomnia Intake and Output 09/19/21 09/20/21 09/20/21 22:59 06:59 14:59 Other: # Voids 2 2 09/20/21 05:25 09/20/21 05:25
[2021-09-20] MEDS: SENNOSIDES-DOCUSATE SODIUM 1 EACH TAB PO SCH ×2 (09:38→20:27)
--- NOTE | 2021-09-20 10:56 | ECHOF ---
Referral Reason:LV function, preeclampsia MEASUREMENTS -------- HEIGHT: 160.0 cm WEIGHT: 72.1 kg BP: 159/93 RVIDd: 2.6 cm (< 3.3) IVSd: 0.9 cm (0.6 - 1.1) LVIDd: 4.7 cm (3.9 - 5.3) LVPWd: 0.9 cm (0.6 - 1.1) IVSs: 1.3 cm LVIDs: 2.5 cm LVPWs: 1.5 cm LA Diam: 3.1 cm (2.7 - 3.8) LAESV Index (A-L): 27.05 ml/m Ao Diam: 2.6 cm (2.0 - 3.7) AV Cusp: 1.7 cm (1.5 - 2.6) MV EXCURSION: 14.946 mm (> 18.000) MV EF SLOPE: 111 mm/s (70 - 150) EPSS: 0.4 cm MV E Socrates: 1.36 m/s MV DecT: 148 ms MV A Socrates: 0.76 m/s MV E/A Ratio: 1.78 RAP: 5.00 mmHg RVSP: 32.51 mmHg FINDINGS -------- Sinus rhythm. This was a technically good study. The left ventricular size is normal. Left ventricular wall thickness is normal. Overall left vent ricular systolic function is normal with, an EF between 55 - 60 %. The diastolic filling pattern is normal for the age of the patient 11.98. The right ventricle is normal in size. Normal LA size by volume 22+/-6 ml/m2. The right atrial size is normal. Interatrial and interventricular septum intact. The aortic valve is trileaflet, and appears structurally normal. No aortic stenosis or regurgitation. The mitral valve is normal. Mild mitral regurgitation is present. The tricuspid valve appears structurally normal. Mild tricuspid regurgitation present. Right vent ricular systolic pressure is normal at < 35 mmHg. There is no pulmonic regurgitation present. The aortic root size is normal. Normal inferior vena cava with normal inspiratory collapse consistent with estimated right atrial pre ssure of 5 mmHg. There is no pericardial effusion. CONCLUSIONS -------- 1. Left ventricular wall thickness is normal. 2. Overall left ventricular systolic function is normal with, an EF between 55 - 60 %. 3. Normal LA size by volume 22+/-6 ml/m2. 4. The aortic valve is trileaflet, and appears structurally normal. No aortic stenosis or regurgitati on. 5. Mild mitral regurgitation is present. 6. Mild tricuspid regurgitation present. 7. There is no pericardial effusion. REPORTING DEVELOPER: Nanci Thompson RDCS
[2021-09-20] MEDS ORDERED: NIFEdipine XL 30 MG TAB.ER.24 PO ONE (20:00)
[2021-09-20 23:05] VITALS: RESP 16
[2021-09-20] MEDS: IBUPROFEN 600 MG TAB PO PRN (23:33)
--- NOTE | 2021-09-21 06:33 | P.PNOBGVD ---
Subjective - Subjective Patient reports: Reports appetite normal, Reports voiding normally, Reports pain well controlled, Reports ambulating normally : doing well Objective - Latest Vital Signs Latest vital signs: Vital Signs Temp Pulse Resp BP BP Pulse Ox 09/21/21 06:00 67 123/83 09/21/21 04:00 74 150/77 09/21/21 02:00 72 147/72 09/21/21 00:00 98.7 F 67 16 151/94 09/20/21 22:00 99.1 F 80 16 157/94 98 09/20/21 20:00 99.5 F 72 17 138/85 97 09/20/21 18:00 65 18 153/85 09/20/21 17:00 18 154/85 09/20/21 16:00 98.8 F 69 18 168/97 99 09/20/21 14:00 18 156/81 09/20/21 12:00 60 18 160/82 159/90 09/20/21 09:53 75 18 138/89 09/20/21 07:35 98.6 F 58 L 18 159/93 99 Intake and Output 09/20/21 09/20/21 09/21/21 14:59 22:59 06:59 Other: # Voids 1 1 2 - Exam Lungs: bilateral: normal Chest: Normal S1, Normal S2 Extremities: Present: normal Abdomen: Present: normal appearance, soft Uterus: Present: normal, firm - Labs Labs: Abnormal Lab Results - Last 24 Hours (Table) 09/20/21 Range/Units 05:25 Chloride 109 H (98-107) mmol/L Calcium 8.1 L (8.4-10.2) mg/dL Assessment and Plan Assessment: day #5. Patient is resting without new complaints. She is having some sinus drainage but otherwise feeling okay. Blood pressures are improved from yesterday and this morning is 120s over 80s. She's currently on labetalol 200 twice a day and Procardia 30 XL daily. I did have a cardiology see her yesterday and cardiac echo was normal at this time we'll continue monitoring blood pressures. Repeat blood work is pending. If blood pressures continue well this morning and lab work is acceptable then most likely discharge home later this morning in follow up with me on the a scheduled for repeat blood pressure check and blood work. (1) Vaginal delivery Current Visit: Yes Status: Acute Code(s): O80 - ENCOUNTER FOR FULL-TERM UNCOMPLICATED DELIVERY SNOMED Code(s): 274867329
[2021-09-21 06:59] LABS: Basophils % (A) 1 %; Eosinophils # (A) 0.2 k/uL (0-0.7); Eosinophils % (A) 3 %; HCT 35.9 % (34.0-46.0); HGB 11.8 gm/dL (11.4-16.0); Lymphocytes # (A) 1.9 k/uL (1.0-4.8); Lymphocytes % (A) 31 %; MCH 32.1 pg (25.0-35.0); MCHC 32.9 g/dL (31.0-37.0); MCV 97.7 fL (80.0-100.0); Mean Platelet Volume 7.7; Monocytes # (A) 0.3 k/uL (0-1.0); Monocytes % (A) 4 %; Neutrophils # (A) 3.7 k/uL (1.3-7.7); Neutrophils % (A) 59 %; Platelet Count 163 k/uL (150-450); RBC 3.67 m/uL (3.80-5.40); RDW 14.1 % (11.5-15.5); WBC 6.2 k/uL (3.8-10.6)
[2021-09-21] MEDS: IBUPROFEN 600 MG TAB PO PRN (07:02)
[2021-09-21 07:08] LABS: ALT 32 U/L (4-34); AST 53 U/L (14-36); African American GFR (CKD) >90 (>60 ml/min/1.73 sqM); Albumin 3.2 g/dL (3.5-5.0); Alkaline Phosphatase 126 U/L (38-126); Anion Gap 5 mmol/L; Blood Urea Nitrogen 5 mg/dL (7-17); Calcium 8.6 mg/dL (8.4-10.2); Carbon Dioxide 22 mmol/L (22-30); Chloride 108 mmol/L (98-107); Glucose 74 mg/dL (74-99); Non-African American GFR(CKD) >90 (>60 ml/min/1.73 sqM); Potassium 4.2 mmol/L (3.5-5.1); Sodium 135 mmol/L (137-145); Total Bilirubin 0.6 mg/dL (0.2-1.3); Total Protein 6.5 g/dL (6.3-8.2)
--- NOTE | 2021-09-21 07:51 | P.DS ---
Providers Date of admission: 09/15/21 12:02 Expected date of discharge: 09/21/21 Attending physician: Aren Timmons Consults: 09/20/21 06:04 Consult Physician Urgent Consulting Provider: David Saunders Consult Reason/Comments: Control of Hypertension Do you want consulting provider notified?: Yes Primary care physician: Stated None - Discharge Diagnosis(es) (1) Vaginal delivery Current Visit: Yes Status: Acute Hospital Course: Please see dictated H&P and progress notes on this patient's admission and hospital course. Brief summary this is a 36-year-old female 37 weeks gestation admitted to labor and delivery with a diagnosis of preeclampsia. Patient is induction of labor was on have a vaginal delivery viable female . Please see dictated delivery note. the patient developed some elevated blood pressures and also elevated liver function tests. Patient did require 24 hours of magnesium sulfate and 2 antihypertensives. Patient was seen by cardiology and had a normal EKG and cardiac echo. Patient's subsequent defervesced and her laboratory values came down to normal and she is felt to be stable for discharge home follow up with me in 4 days for blood pressure check and repeat labs. Procedures: Induction of labor and normal vaginal delivery Patient Condition at Discharge: Good Plan - Discharge Summary New Discharge Prescriptions: New NIFEdipine XL [Procardia XL] 60 mg PO DAILY #30 tablet Labetalol [Trandate] 200 mg PO TID #90 tab Ibuprofen [Motrin] 600 mg PO Q6HR PRN #30 tab PRN Reason: Pain No Action Mis-Addx-Swddy Acid [-U Capsule (formulary)] 1 cap PO DAILY Discharge Medication List Zdo-Vipn-Mzxcn Acid [-U Capsule (formulary)] 1 cap PO DAILY 04/03/21 [History] Ibuprofen [Motrin] 600 mg PO Q6HR PRN #30 tab 09/18/21 [Rx] Labetalol [Trandate] 200 mg PO TID #90 tab 09/21/21 [Rx] NIFEdipine XL [Procardia XL] 60 mg PO DAILY #30 tablet 09/21/21 [Rx] Follow up Appointment(s)/Referral(s): Aren Timmons MD [STAFF PHYSICIAN] - 10/29/21 10:45 am (Please see me in 1 week for blood pressure check and repeat platelets BP Check-09/25/21@9:15am) Patient Instructions/Handouts: Vaginal Delivery (DC) Activity/Diet/Wound Care/Special Instructions: No intercourse or anything per vagina for 6 weeks. These call if any fever, chills, excessive vaginal bleeding, and/or abdominal pain Discharge Disposition: HOME SELF-CARE
[2021-09-21 07:53] VITALS: BP 137/87; PULSE 81; TEMP 97
[2021-09-21] MEDS: LABETALOL 200 MG TAB PO SCH (09:09)
[2021-09-21] MEDS: SENNOSIDES-DOCUSATE SODIUM 1 EACH TAB PO SCH (09:52)
--- NOTE | 2021-09-21 10:24 | P.PN ---
Subjective Progress Note Date: 09/21/21 PROGRESS NOTE She is feeling better today, she has mild headache. Her blood pressures under good control increasing the Procardia to 60 mg daily. Her echocardiogram showed a normal systolic function. PHYSICAL EXAMINATION: Blood pressure 124/70 heart rate 70 LUNGS: [Clear to auscultation] HEART: [Regular rate and rhythm, S1, S2. No S3. Ejection systolic murmur at the base] ABDOMEN: [Soft, nontender, no organomegaly] EXTREMETIES: [No edema] IMPRESSION: 1. 2. Preeclampsia 3. Hypertension under better control PLAN: Discharge home today on the present medical regimen and adjust antihypertensive regimen as an outpatient. Objective - Vital Signs Vital signs: Vital Signs Temp 97 F L 09/21/21 07:48 Pulse 81 09/21/21 07:48 Resp 16 09/21/21 07:48 BP 137/87 09/21/21 07:48 Pulse Ox 98 09/20/21 22:00 Intake & Output 09/20/21 09/21/21 09/21/21 18:59 06:59 18:59 Other: # Voids 1 2 2 - Labs CBC & Chem 7: 09/21/21 06:29 09/21/21 06:29 Labs: Abnormal Lab Results - Last 24 Hours (Table) 09/21/21 09/21/21 Range/Units 06:29 06:29 RBC 3.67 L (3.80-5.40) m/uL Sodium 135 L (137-145) mmol/L Chloride 108 H (98-107) mmol/L BUN 5 L (7-17) mg/dL AST 53 H (14-36) U/L Albumin 3.2 L (3.5-5.0) g/dL
== END 2021-09-21 09:50 | disposition home or self-care (01) | DRG 806 ==
LOC: FBPOP 10:40 → 4FBP 12:02
PROVIDERS: ADMIT Obstetrics & Gynecology; ATTEND Obstetrics & Gynecology
PROC: 10E0XZZ Delivery of Products of Conception, External Approach (ICD-10-PCS; principal; 2021-09-16)
PROC: 0HQ9XZZ Repair Perineum Skin, External Approach (ICD-10-PCS; 2021-09-16)
DX: O14.94 Unspecified pre-eclampsia, complicating childbirth (principal); O99.12 Other diseases of the blood and blood-forming organs and certain disorders involving the immune mechanism complicating childbirth; Z37.0 Single live birth; F90.9 Attention-deficit hyperactivity disorder, unspecified type; O70.0 First degree perineal laceration during delivery; Z3A.37 37 weeks gestation of pregnancy; D69.6 Thrombocytopenia, unspecified; Z87.891 Personal history of nicotine dependence
CPT/HCPCS: 59025; 80053; 80076; 81001; 82565; 82570; 83615; 83735; 84156; 84450; 84460; 84520; 84550; 85025; 85610; 85730; 86850; 86900; 86901; 88307; 93306; 99215

== ENCOUNTER → 2022-07-12 | Outpatient (CLI) | payer OTHER ==
--- NOTE | 2022-07-12 08:28 | MM ---
Reason for Exam: Clinical finding. Baseline mammogram. Indicated Problems: Lump or thickening of the right side for 2 Month(s). Patient History: Menarche at age 13. First Full-Term at age 36. Late child-bearing (after 30). Premenopausal. Patient has history of breast feeding. 2016, Bilateral Implant Removal. Maternal grandmother had breast cancer under age 50. Maternal cousin had breast cancer under age 50. Last menstrual period: 06/26/2022 Risk Values: Josey 5 year model risk: 0.5%. NCI Lifetime model risk: 13.8%. Prior Study Comparison: Patient's first Mammogram. Tissue Density: The breast tissue is heterogeneously dense. This may lower the sensitivity of mammography. Findings: Analyzed By CAD. Left-sided distortion to reflect products of surgical implant removal is noted. There is occasional scattered tiny benign-appearing round calcification bilaterally more numerous in the right breast. Overall Assessment: Incomplete: need additional imaging evaluation, BI-RAD 0 Management: Diagnostic Breast Ultrasound of both breasts. Ultrasound right breast palpable abnormality. Ultrasound left breast asymmetric distortion. Electronically signed and approved by: Jesus Verdugo M.D.
--- NOTE | 2022-07-12 08:52 | USB ---
Reason for Exam: Clinical finding. Patient History: Menarche at age 13. First Full-Term at age 36. Late child-bearing (after 30). Premenopausal. Patient has history of breast feeding. 2016, Bilateral Implant Removal. Maternal grandmother had breast cancer under age 50. Maternal cousin had breast cancer under age 50. Risk Values: Josey 5 year model risk: 0.5%. NCI Lifetime model risk: 13.8%. Technique: Method: Targeted. Findings: The area of palpable concern of the right breast and the lower section of the breast of the left breast were scanned. Targeted ultrasound right breast palpable shows irregular 4 x 3 x 5 mm heterogeneous slightly hypoechoic lesion in the dermal layer favoring benign process but too small to definitively characterize. Targeted ultrasound left breast at site of distortion shows no underlying solid or cystic mass or fluid collection. Overall Assessment: Benign, BI-RAD 2 Management: Screening Mammogram of both breasts at age 40. Patient told to return if right breast palpable lesion becomes larger or painful. Patient told of results and findings at time of dictation. Electronically signed and approved by: Jesus Verdugo M.D.
== END | disposition home or self-care (01) ==
LOC: RADMAMWWP 07:33
PROVIDERS: ATTEND Obstetrics & Gynecology
DX: N64.4 Mastodynia (principal); Z80.3 Family history of malignant neoplasm of breast
CPT/HCPCS: 77066

== ENCOUNTER → 2023-09-06 | Outpatient (CLI) | payer OTHER ==
--- NOTE | 2023-09-06 08:43 | CT ---
EXAMINATION TYPE: CT sinus wo con DATE OF EXAM: 09/06/2023 COMPARISON: none. HISTORY: Chronic sinusitis, hearing loss CT DLP: 507.[address] of the paranasal sinuses was performed in the axial and coronal planes. Bone and soft tissue settings are submitted. The paranasal sinuses demonstrate normal aeration and development. Pansinusitis with opacification of all sinuses. The osteal meatal units are obstructed bilaterally. The nasal septum is midline. No bony destructive changes are seen within the field of view. IMPRESSION: Pansinusitis
== END | disposition home or self-care (01) ==
LOC: RADCTMAIN 08:06
PROVIDERS: ATTEND Family Medicine
DX: J32.4 Chronic pansinusitis (principal); H91.90 Unspecified hearing loss, unspecified ear
CPT/HCPCS: 70486

== ENCOUNTER → 2023-10-03 | Outpatient (CLI) | payer OTHER | END | disposition home or self-care (01) | LOC: LABWHC1 15:29 | PROVIDERS: ATTEND Obstetrics & Gynecology | DX: O20.0 Threatened abortion (principal); Z3A.00 Weeks of gestation of pregnancy not specified | CPT/HCPCS: 36415; 84144; 84702 ==

== ENCOUNTER → 2023-11-28 | Outpatient (CLI) | payer OTHER ==
--- NOTE | 2023-11-29 12:31 | MR ---
EXAMINATION TYPE: MR iac wo/w con DATE OF EXAM: 11/28/2023 COMPARISON: NONE HISTORY: Intermittent Hearing Loss Left Ear x1 year TECHNIQUE: Multiplanar, multisequence images of the brain and brainstem is performed without and with IV contras t, utilizing 6.5ml mL intravenous Gadavist . Acoustic nerve disorder protocol. FINDINGS: Diffusion weighted images demonstrate no evidence of a recent infarct or other diffusion ab normality. There is no extra-axial fluid collection or significant white matter signal abnormality. The ventricular system and cisternal spaces are normal in size and appearance. The brain volume is age appropriate. Midline structures demonstrate normal morphology. The craniocervical junction appears within normal limits. The visualized sinuses are clear and the globes are intact bilaterally. No suspicious fluid signal in the mastoid air cells bilaterally. Vestibulocochlear complexes are symm etric and felt within normal limits. There is no suspicious enhancing cerebellopontine angle mass jennifer ntified bilaterally. IMPRESSION: No significant findings are seen to account for patient's symptoms.
== END | disposition home or self-care (01) ==
LOC: RADMRIMAIN 19:38
PROVIDERS: ATTEND Otolaryngology
DX: H91.90 Unspecified hearing loss, unspecified ear (principal)
CPT/HCPCS: 70553; A9585